=== PATIENT | female | born 1950 | race Hispanic/Latino ===

== ENCOUNTER 2017-06-30 07:08 | Outpatient (CLI) | payer OTHER ==
--- NOTE | 2017-06-30 08:19 | CT ---
CT CHEST NONCONTRAST: HISTORY: Right middle lobe infiltrate. Followup. COMPARISON: 02/25/17. FINDINGS: The peripheral pleural-based parenchymal infiltrate at the right anterior cardiopleural angle is unch anged in appearance from the previous exam. No new parenchymal masses or infiltrates are apparent. No pleural fluid is visible. Lack of contrast limits evaluation for other abnormalities. The 1.5 cm oval low-density pleural lesi on at the posterior medial lower aspect of the right hemithorax is unchanged in appearance. No bulky adenopathy is apparent. There is calcification in the arterial structures. Bilateral adrenal adeno mas are stable. IMPRESSION: Stable CT appearance of the right middle lobe infiltrate, right posterior pleural nodule, and other f indings. Please consider yearly followup to evaluate for stability. POS: AMY
== END 2017-06-30 07:09 | disposition home or self-care (01) ==
LOC: CT 07:08
PROVIDERS: ATTEND Family Medicine
DX: J98.4 Other disorders of lung (principal); R91.1 Solitary pulmonary nodule
CPT/HCPCS: 71250

== ENCOUNTER 2017-11-15 09:37 | Outpatient (CLI) | payer OTHER ==
--- NOTE | 2017-11-15 15:45 | MMO ---
BILATERAL SCREENING MAMMOGRAM: Date: 11/15/17 HISTORY: Annual screening exam. This is being treated as a baseline study given that the previous films could not be located. This patient's mammogram was interpreted with the assistance of computer-aided detection. FINDINGS: There is an area of parenchymal asymmetry seen in the upper outer right breast, somewhat more difficu lt to definitely localize on the MLO projection, but I have marked an area that I feel is most likely the area in question. IMPRESSION: BIRADS 0: Incomplete: Need Additional Imaging Evaluation and/or Prior Mammograms for Comparison Further imaging required. In this case, spot compression views of the area marked in the upper outer right breast, to be followed by ultrasound if necessary. The facility will notify patient of need for additional imaging services. POS: AMY
== END 2017-11-15 09:38 | disposition home or self-care (01) ==
LOC: SCSMAMMO 09:37
PROVIDERS: ATTEND Family Medicine
DX: Z12.31 Encounter for screening mammogram for malignant neoplasm of breast (principal)
CPT/HCPCS: 77067

== ENCOUNTER 2017-12-22 08:15 | Outpatient (CLI) | payer OTHER | END 2017-12-22 08:16 | disposition home or self-care (01) | LOC: BICMAMMO 08:15 | PROVIDERS: ATTEND Family Medicine | DX: N64.89 Other specified disorders of breast (principal) | CPT/HCPCS: G0279 ==

== ENCOUNTER → 2018-02-09 | Day surgery (SDC) | payer OTHER | LOC: BICULT 13:13 | PROVIDERS: ATTEND Family Medicine | DX: N60.02 Solitary cyst of left breast (principal) ==

== ENCOUNTER 2018-07-03 13:08 | Outpatient (CLI) | payer OTHER ==
--- NOTE | 2018-07-03 14:41 | CT ---
CT OF CHEST PERFORMED WITHOUT CONTRAST ENHANCEMENT: HISTORY: Evaluation of right posterior pleural-based nodule and right middle lobe infiltrate. COMPARISON: A study. FINDINGS: The lungs are clear of any infiltrative process. There is a pleural-based nodule which has CT Hounsfield unit numbers which are -5. This measures 2.1 cm in maximum length. Doing measurements at the same level on the previous examination, although th at density was described as being 1.5 cm, I obtained a similar measurement and feel that this is stab le. The right middle lobe parenchymal changes which are along the right heart border have improved slight ly as compared to the prior examination. There is no new parenchymal process seen. No significant m ediastinal or hilar adenopathy is appreciated on this noncontrast study. Bilateral low attenuation adrenal masses are seen. The mass on the right is 2.1 cm and on the left [address] numbers compatible with adenomas and are stable. The visualized liver parenchyma shows no focal findings. IMPRESSION: 1. Stable overall examination. 2. Stable pleural-based nodule within the right lower lobe in a ore paravertebral location. 3. Some slight improvement to the parenchymal lung changes in the right middle lobe. 4. Stable bilateral adenomas. 5. Stable appearance to some small subdiaphragmatic and periportal and peripancreatic nodes which ar e incidentally noted. POS: AMY
== END 2018-07-03 13:09 | disposition home or self-care (01) ==
LOC: CT 13:08
PROVIDERS: ATTEND Family Medicine
DX: R91.1 Solitary pulmonary nodule (principal); D14.32 Benign neoplasm of left bronchus and lung; D14.31 Benign neoplasm of right bronchus and lung
CPT/HCPCS: 71250

== ENCOUNTER 2018-12-26 09:12 | Outpatient (CLI) | payer OTHER ==
--- NOTE | 2018-12-27 10:58 | MMO ---
Bilateral MAMMO Bilat Screen DDI. CLINICAL HISTORY: Patient is 68 years old and is seen for screening. The patient has no family history of breast cancer. The patient has no personal history of cancer. VIEWS: The views performed were: bilateral craniocaudal and bilateral mediolateral oblique. FILMS COMPARED: The present examination has been compared to prior imaging studies performed at [facility] on 11/15/2017, and at [facility] on 12/22/2017. This study has been interpreted with the assistance of computer-aided detection. MAMMOGRAM FINDINGS: There are scattered fibroglandular densities. There is a high density, irregular mass measuring 14 millimeters with indistinct margins seen in the middle upper-outer region of the left breast. In the right breast, there are no suspicious masses, calcifications or areas of architectural distortion. IMPRESSION: MASS IN THE LEFT BREAST REQUIRES ADDITIONAL EVALUATION. AN ULTRASOUND EXAM IS RECOMMENDED. SPOT MAGNIFICATION VIEW(S) ARE RECOMMENDED. ACR BI-RADS Category 0 - Incomplete: Need additional imaging evaluation. [facility] will notify the patient of the need for additional imaging services. MAMMOGRAPHY NOTE: 1. A negative mammogram report should not delay a biopsy if a dominant of clinically suspicious mass is present. 2. Approximately 10% to 15% of breast cancers are not detected by mammography. 3. Adenosis and dense breasts may obscure an underlying neoplasm. Reported by: LYNETTE DUGAN MD Electonically Signed: [id number]
== END 2018-12-26 09:13 | disposition home or self-care (01) ==
LOC: SCSMAMMO 09:12
PROVIDERS: ATTEND Family Medicine
DX: N64.89 Other specified disorders of breast (principal); N63.20 Unspecified lump in the left breast, unspecified quadrant
CPT/HCPCS: 77067

== ENCOUNTER 2019-03-20 09:05 | Outpatient (CLI) | payer OTHER ==
--- NOTE | 2019-03-20 09:59 | MMO ---
Left Breast MAMMO Unilat Diag DDI LT+BELEN. CLINICAL HISTORY: Patient is 68 years old and is seen for diagnostic exam. The patient has no family history of breast cancer. The patient has no personal history of cancer. VIEWS: The views performed were: left craniocaudal spot compression; left mediolateral oblique spot compression; and left mediolateral with tomosynthesis. FILMS COMPARED: The present examination has been compared to prior imaging studies performed at [facility] on 11/15/2017 and 12/26/2018, and at [facility] on 12/22/2017 and 03/20/2019. This study has been interpreted with the assistance of computer-aided detection. MAMMOGRAM FINDINGS: There are scattered fibroglandular densities. There is a high density, irregular mass with spiculated margins seen in the upper-outer region of the left breast. A shadowing hypoechoic mass is demonstrated sonographically. IMPRESSION: MASS IN THE LEFT BREAST IS HIGHLY SUGGESTIVE OF MALIGNANCY. AN ULTRASOUND-GUIDED BREAST BIOPSY IS RECOMMENDED. RESULTS AND RECOMMENDATIONS DISCUSSED WITH THE PATIENT AND QUESTIONS ANSWERED. THE RESULTS OF THIS EXAM WERE SENT TO THE PATIENT. ACR BI-RADS Category 5 - Highly suggestive of malignancy - appropriate action should be taken MAMMOGRAPHY NOTE: 1. A negative mammogram report should not delay a biopsy if a dominant of clinically suspicious mass is present. 2. Approximately 10% to 15% of breast cancers are not detected by mammography. 3. Adenosis and dense breasts may obscure an underlying neoplasm. Reported by: SHIREEN FALCON MD Electonically Signed: [id number]
--- NOTE | 2019-03-20 11:16 | ULT ---
LIMITED LEFT BREAST ULTRASOUND: 03/20/2019 PROVIDED CLINICAL HISTORY: Abnormal mammogram. FINDINGS: Limited sonographic interrogation of the left breast, in the upper outer quadrant was performed. Ther e is an irregular hypoechoic shadowing mass present at the 2 o'clock position of the left breast, nicki suring at least 1.7 cm in greatest transverse dimension. IMPRESSION: BI-RADS category 5 - highly suspicious for malignancy. Ultrasound guided breast biopsy is recommended. Results and recommendations discussed with the patien t and questions answered. POS: OFF
== END 2019-03-20 09:06 | disposition home or self-care (01) ==
LOC: BICMAMMO 09:05
PROVIDERS: ATTEND Family Medicine
DX: N63.21 Unspecified lump in the left breast, upper outer quadrant (principal)
CPT/HCPCS: G0279

== ENCOUNTER 2019-04-12 08:30 | Outpatient (CLI) | payer OTHER ==
--- NOTE | 2019-04-12 09:01 | ULT ---
Sonogram right upper quadrant HISTORY: Abnormal liver function tests. FINDINGS: Gallbladder has a normal appearance. Common duct is 0.4 cm. Liver unremarkable without foca l mass or intrahepatic biliary dilatation. No free fluid. IMPRESSION: Normal exam.
--- NOTE | 2019-04-12 10:25 | MMO ---
Left Breast MAMMO Unilat Diag DDI LT. CLINICAL HISTORY: Patient is 68 years old and is seen for diagnostic exam. VIEWS: The views performed were: . FILMS COMPARED: The present examination has been compared to prior imaging studies performed at [facility] on 12/26/2018, and at [facility] on 12/22/2017 and 03/20/2019. This study has been interpreted with the assistance of computer-aided detection. MAMMOGRAM FINDINGS: There are scattered fibroglandular densities. There is a biopsy clip seen in the upper-outer region of the left breast. IMPRESSION: BIOPSY CLIP IN THE LEFT BREAST IS CONFIRMED UTILIZING POST PROCEDURE MAMMOGRAM. THE RESULTS OF THIS EXAM WERE SENT TO THE PATIENT. MAMMOGRAPHY NOTE: 1. A negative mammogram report should not delay a biopsy if a dominant of clinically suspicious mass is present. 2. Approximately 10% to 15% of breast cancers are not detected by mammography. 3. Adenosis and dense breasts may obscure an underlying neoplasm. Reported by: PITER ELLIS MD Electonically Signed: [id number]
--- NOTE | 2019-04-12 12:32 | ULT ---
Sonographic guided left breast mass biopsy and localization clip placement HISTORY: Left breast mass. FINDINGS: After explaining the procedure and answering all questions, the hypoechoic mass at the 2:00 position left breast was again documented. Sterile technique, buffered local anesthesia, sonographic guidance, and a lateral approach were used to carefully advance the tip of a 14-gauge bio psy needle to the level of the spiculated mass. A total of 3 14-gauge core biopsy specimens were obtained and eventually submitted to pathology for evaluation. Localization clip was placed in the biopsy bed under sonographic control. Patient tolerated the proce dure well and was eventually dismissed in good condition. IMPRESSION: Technically successful sonographic guided left breast mass.
== END 2019-04-12 08:31 | disposition home or self-care (01) ==
LOC: BICULT 08:30
PROVIDERS: ATTEND Family Medicine
DX: C50.412 Malignant neoplasm of upper-outer quadrant of left female breast (principal)
CPT/HCPCS: 19083; 76705; 88305

== ENCOUNTER 2019-04-26 08:16 | Outpatient (CLI) | payer OTHER ==
--- NOTE | 2019-04-26 13:48 | PET ---
Exam: PET CT skull to mid thigh COMPARISON: None HISTORY: Left breast cancer TECHNIQUE: A PET/CT was performed from the skull to the mid thigh after administration of 11.2 millic uries of F-18 FDG. Evaluation was performed on a [employer] workstation. FINDINGS: NECK: No areas of hypermetabolic activity CHEST: There is mild increased metabolic activity of patient's known left breast malignancy, 2.6 SUV. ABDOMEN/PELVIS: No areas of hypermetabolic activity SKELETON: No areas of hypermetabolic activity CT images used for attenuation correction show stable pleural-based mass of the posterior, medial rig ht hemithorax, which is not hypermetabolic. Bilateral adrenal adenomas are redemonstrated. There is ectasia of the aortic arch, 3.5 cm in diameter. IMPRESSION: Hypermetabolic focus, involving left breast soft tissues, related to patient's recently d iagnosed left breast cancer. There is no scintigraphic evidence of metastatic disease.
== END 2019-04-26 08:17 | disposition home or self-care (01) ==
LOC: PET 08:16
PROVIDERS: ATTEND Family Medicine
DX: C50.912 Malignant neoplasm of unspecified site of left female breast (principal)
CPT/HCPCS: 78815; A9552

== ENCOUNTER 2023-06-07 18:04 | Inpatient (IN) | payer OTHER ==
[2023-06-07] MEDS ORDERED: Morphine 4 MG/ML VIAL ONE ×2 (18:55→21:16)
[2023-06-07] MEDS ORDERED: Ondansetron PF 4 MG/2 ML Vial ONE ×2 (18:56→21:17)
[2023-06-07 20:07] LABS: #Eosinphils 0.1 thou/uL (0.0-0.7); #Neutrophils 7.9 thou/uL (1.40-6.50); %Basophils 0.2 % (0.0-1.0); %Eosinophils 1.1 % (0.0-10.0); %Lymphocytes 9.6 % (21.0-51.0); %Monocytes 10.2 % (0.0-10.0); %Neutrophils 78.1 % (42.0-75.0); Hematocrit 32.4 % (36.0-47.0); Hemoglobin 11.2 g/dL (12.0-16.0); Mean Corpuscular HGB CONC 34.6 g/dL (32.0-36.0); Mean Corpuscular Hemoglobin 34.1 pg (27.0-31.0); Mean Corpuscular Volume 98.8 fl (78.0-98.0); Platelet Count 153 10x3/uL (130-400); RBC Distribution Width 13.2 % (11.5-14.5); Red Blood Cell (RBC) Count 3.28 mill/uL (4.20-5.40); White Blood Cell (WBC) Count 10.1 10x3/uL (4.8-10.8)
[2023-06-07 20:21] LABS: INR-International Normal Ratio 0.9; Prothrombin Time 12.8 sec (12.0-14.7)
[2023-06-07 20:22] LABS: PTT 26.7 sec (22.9-36.1)
[2023-06-07 20:34] LABS: ALT (SGPT) 26 U/L (8-55); AST (SGOT) 26 U/L (5-34); Albumin 4.4 g/dL (3.4-4.8); Alkaline Phosphatase 137 U/L (40-110); Anion Gap 15 mmol/L (10-20); BUN (Urea Nitrogen) 21 mg/dL (9.8-20.1); Bilirubin, Total 0.4 mg/dL (0.2-1.2); Calc. Creatinine Clearance 0 mL/min (70-130); Calcium 9.7 mg/dL (7.8-10.44); Carbon Dioxide 21 mmol/L (23-31); Chloride 104 mmol/L (98-107); Estimated GFR 32; Globulin 3.8 g/dL (2.4-3.5); Glucose 103 mg/dL (83-110); Potassium 3.6 mmol/L (3.5-5.1); Protein, Total 8.2 g/dL (5.8-8.1); Sodium 136 mmol/L (136-145)
[2023-06-07] MEDS ORDERED: Morphine 4 MG/ML VIAL SLOW IVP PRN (21:24)
[2023-06-07] MEDS ORDERED: TETANUS, DIPHTHERIA TOX,ADULT (TDVAX) 0.5 ML VIAL IM ONE (21:24)
[2023-06-07] MEDS ORDERED: hydrALAZINE 20 MG/ML VIAL SLOW IVP PRN (21:24)
[2023-06-07] MEDS ORDERED: Morphine 2 MG/ML VIAL SLOW IVP PRN (21:24)
[2023-06-07 21:29] VITALS: BMI 28.9
[2023-06-07] MEDS: Sodium Chloride 0.9% 1,000 ML IV SCH ×2 (22:04→23:58)
[2023-06-07] MEDS ORDERED: Boostrix 0.5 ML (Tdap) VIAL (>/=7 yrs of age) ONE (22:16)
[2023-06-07] MEDS: traMADol HCl 50 MG TAB PO PRN (23:57)
[2023-06-08 06:24] LABS: #Eosinphils 0.1 thou/uL (0.0-0.7); #Monocytes 0.8 thou/uL (0.11-0.59); %Basophils 0.1 % (0.0-1.0); %Eosinophils 0.8 % (0.0-10.0); %Lymphocytes 16.4 % (21.0-51.0); %Monocytes 11.4 % (0.0-10.0); Hematocrit 33.3 % (36.0-47.0); Hemoglobin 10.9 g/dL (12.0-16.0); Mean Corpuscular HGB CONC 32.7 g/dL (32.0-36.0); Mean Corpuscular Hemoglobin 33.9 pg (27.0-31.0); Mean Platelet Volume 9.5 fL (7.4-10.4); Platelet Count 105 10x3/uL (130-400); RBC Distribution Width 13.3 % (11.5-14.5); Red Blood Cell (RBC) Count 3.22 mill/uL (4.20-5.40); White Blood Cell (WBC) Count 7.1 10x3/uL (4.8-10.8)
[2023-06-08 06:39] LABS: Mean Corpuscular Volume 103.4 fl (78.0-98.0)
[2023-06-08 06:46] LABS: Anion Gap 13 mmol/L (10-20); BUN (Urea Nitrogen) 18 mg/dL (9.8-20.1); Calc. Creatinine Clearance 37 mL/min (70-130); Calcium 8.6 mg/dL (7.8-10.44); Carbon Dioxide 19 mmol/L (23-31); Chloride 107 mmol/L (98-107); Estimated GFR 38; Glucose 97 mg/dL (83-110); Potassium 3.8 mmol/L (3.5-5.1); Sodium 135 mmol/L (136-145)
[2023-06-08] MEDS ORDERED: Clindamycin/D5W 900 MG in Premix 1 BAG IVPB SCH (07:30)
[2023-06-08] MEDS ORDERED: Clindamycin/D5W 900 mg/50 ml Premix Bag ONE (07:40)
[2023-06-08] MEDS ORDERED: PROPOFOL 20 ML ONE (07:52)
[2023-06-08] MEDS ORDERED: Fentanyl 250 MCG/5 ML VIAL ONE (07:53)
[2023-06-08] MEDS ORDERED: Dexamethasone 4 mg/ml Vial ONE (07:55)
[2023-06-08] MEDS ORDERED: Rocuronium Bromide 10 MG/ML (10ML VIAL) ONE (07:55)
[2023-06-08] MEDS ORDERED: Ondansetron PF 4 MG/2 ML Vial ONE (07:55)
[2023-06-08] MEDS: Sodium Chloride 0.9% 1,000 ML IV SCH ×2 (08:01→21:47)
[2023-06-08] MEDS: Acetaminophen 500 MG TAB PO SCH ×4 (08:01→21:40)
[2023-06-08] MEDS: Famotidine 20 MG TAB PO SCH ×2 (08:01→21:40)
[2023-06-08] MEDS ORDERED: SUGAMMADEX SODIUM 200 MG/2 ML VIAL ONE (08:54)
[2023-06-08] MEDS ORDERED: Promethazine HCl 25 MG/ML VIAL IM PRN (09:11)
[2023-06-08] MEDS ORDERED: Ondansetron HCl/PF 4 MG/2 ML Vial IVP PRN (09:11)
[2023-06-08] MEDS: Clindamycin/D5W 900 MG in Premix 1 BAG IVPB SCH ×2 (16:34→23:28)
[2023-06-08] MEDS: traMADol HCl 50 MG TAB PO PRN (21:41)
[2023-06-09 05:43] LABS: %Basophils 0.1 % (0.0-1.0); %Eosinophils 0.1 % (0.0-10.0); %Lymphocytes 10.3 % (21.0-51.0); %Monocytes 13.1 % (0.0-10.0); %Neutrophils 75.9 % (42.0-75.0); Hematocrit 26.3 % (36.0-47.0); Hemoglobin 8.7 g/dL (12.0-16.0); Mean Corpuscular HGB CONC 33.1 g/dL (32.0-36.0); Mean Corpuscular Hemoglobin 34.3 pg (27.0-31.0); Mean Corpuscular Volume 103.5 fl (78.0-98.0); Mean Platelet Volume 8.9 fL (7.4-10.4); Platelet Count 123 10x3/uL (130-400); RBC Distribution Width 13.2 % (11.5-14.5); Red Blood Cell (RBC) Count 2.54 mill/uL (4.20-5.40); White Blood Cell (WBC) Count 7.9 10x3/uL (4.8-10.8)
[2023-06-09] MEDS: Clindamycin/D5W 900 MG in Premix 1 BAG IVPB SCH (08:28)
[2023-06-09] MEDS: traMADol HCl 50 MG TAB PO PRN ×3 (09:29→23:19)
[2023-06-09] MEDS: Famotidine 20 MG TAB PO SCH ×2 (09:29→20:07)
[2023-06-09] MEDS: Sodium Chloride 0.9% 1,000 ML IV SCH ×3 (09:30→22:35)
[2023-06-09] MEDS: Acetaminophen 500 MG TAB PO SCH ×4 (09:30→20:06)
[2023-06-09] MEDS: Heparin 5,000 UNITS/ML VIAL SC SCH (20:05)
[2023-06-10] MEDS: Sodium Chloride 0.9% 1,000 ML IV SCH ×3 (04:43→22:00)
[2023-06-10] MEDS: traMADol HCl 50 MG TAB PO PRN ×2 (05:14→19:50)
[2023-06-10 05:17] LABS: #Eosinphils 0.2 thou/uL (0.0-0.7); #Neutrophils 4.5 thou/uL (1.40-6.50); %Basophils 0.3 % (0.0-1.0); %Eosinophils 2.7 % (0.0-10.0); %Monocytes 13.7 % (0.0-10.0); %Neutrophils 62.9 % (42.0-75.0); Hematocrit 27.1 % (36.0-47.0); Mean Corpuscular HGB CONC 33.2 g/dL (32.0-36.0); Mean Corpuscular Hemoglobin 34.4 pg (27.0-31.0); Mean Corpuscular Volume 103.4 fl (78.0-98.0); Mean Platelet Volume 8.8 fL (7.4-10.4); Platelet Count 120 10x3/uL (130-400); RBC Distribution Width 13.4 % (11.5-14.5); Red Blood Cell (RBC) Count 2.62 mill/uL (4.20-5.40); White Blood Cell (WBC) Count 7.1 10x3/uL (4.8-10.8)
[2023-06-10] MEDS: Famotidine 20 MG TAB PO SCH ×2 (09:20→19:50)
[2023-06-10] MEDS: Heparin 5,000 UNITS/ML VIAL SC SCH ×2 (09:20→19:33)
[2023-06-10] MEDS: Acetaminophen 500 MG TAB PO SCH ×4 (09:20→19:50)
[2023-06-11] MEDS: Sodium Chloride 0.9% 1,000 ML IV SCH ×3 (09:58→20:20)
[2023-06-11] MEDS: Famotidine 20 MG TAB PO SCH ×2 (09:59→19:42)
[2023-06-11] MEDS: Acetaminophen 500 MG TAB PO SCH ×4 (09:59→19:41)
[2023-06-11] MEDS: Heparin 5,000 UNITS/ML VIAL SC SCH ×2 (11:20→19:43)
[2023-06-11] MEDS: traMADol HCl 50 MG TAB PO PRN (19:42)
[2023-06-12] MEDS: traMADol HCl 50 MG TAB PO PRN (04:58)
[2023-06-12 05:40] LABS: #Eosinphils 0.2 thou/uL (0.0-0.7); #Monocytes 0.9 thou/uL (0.11-0.59); #Neutrophils 3.6 thou/uL (1.40-6.50); %Basophils 0.3 % (0.0-1.0); %Eosinophils 2.5 % (0.0-10.0); %Lymphocytes 22.9 % (21.0-51.0); %Monocytes 13.9 % (0.0-10.0); %Neutrophils 59.6 % (42.0-75.0); Hematocrit 30.9 % (36.0-47.0); Hemoglobin 10.4 g/dL (12.0-16.0); Mean Corpuscular HGB CONC 33.7 g/dL (32.0-36.0); Mean Corpuscular Hemoglobin 33.5 pg (27.0-31.0); Mean Corpuscular Volume 99.7 fl (78.0-98.0); Mean Platelet Volume 8.5 fL (7.4-10.4); Platelet Count 139 10x3/uL (130-400); RBC Distribution Width 13.1 % (11.5-14.5); White Blood Cell (WBC) Count 6.1 10x3/uL (4.8-10.8)
[2023-06-12 06:30] LABS: Anion Gap 13 mmol/L (10-20); BUN (Urea Nitrogen) 23 mg/dL (9.8-20.1); Calc. Creatinine Clearance 34 mL/min (70-130); Calcium 9.6 mg/dL (7.8-10.44); Carbon Dioxide 22 mmol/L (23-31); Chloride 104 mmol/L (98-107); Estimated GFR 35; Glucose 105 mg/dL (83-110); Potassium 3.9 mmol/L (3.5-5.1); Sodium 135 mmol/L (136-145)
[2023-06-12] MEDS: Acetaminophen 500 MG TAB PO SCH ×4 (08:45→22:40)
[2023-06-12] MEDS: Famotidine 20 MG TAB PO SCH ×2 (08:46→22:40)
[2023-06-12] MEDS: Heparin 5,000 UNITS/ML VIAL SC SCH ×2 (08:46→22:42)
[2023-06-12] MEDS: Sodium Chloride 0.9% 1,000 ML IV SCH ×2 (09:18→18:39)
[2023-06-13] MEDS: Sodium Chloride 0.9% 1,000 ML IV SCH (05:46)
[2023-06-13] MEDS ORDERED: traMADol HCl 50 MG TAB PO PRN (08:43)
[2023-06-13] MEDS: Heparin 5,000 UNITS/ML VIAL SC SCH (10:11)
[2023-06-13] MEDS: traMADol HCl 50 MG TAB PO SCH ×2 (10:14→18:20)
[2023-06-13] MEDS: Famotidine 20 MG TAB PO SCH (10:15)
[2023-06-13] MEDS: Acetaminophen 500 MG TAB PO SCH ×3 (10:15→18:32)
[2023-06-13] MEDS ORDERED: Lactulose 20 GM (30 mL) UDCUP PO SCH (15:00)
[2023-06-13 17:06] VITALS: BP 109/66; TEMP 97.9
[2023-06-13] MEDS ORDERED: Senokot S 8.6-50 MG TAB PO SCH (21:00)
[2023-06-14] MEDS ORDERED: Polyethylene Glycol 3350 17 GM Packet PO SCH (09:00)
== END 2023-06-13 19:00 | disposition home or self-care (01) | DRG 481 ==
LOC: ERS 18:04 → EEVIPCON 18:04 → ERHOLD 20:20 → SJJU 23:22
PROVIDERS: ADMIT Specialist; ATTEND Specialist
PROC: 0QS704Z Reposition Left Upper Femur with Internal Fixation Device, Open Approach (ICD-10-PCS; principal; 2023-06-08)
DX: S72.142A Displaced intertrochanteric fracture of left femur, initial encounter for closed fracture (principal); D62 Acute posthemorrhagic anemia; W18.30XA Fall on same level, unspecified, initial encounter; Z88.5 Allergy status to narcotic agent; Z88.0 Allergy status to penicillin; Z88.8 Allergy status to other drugs, medicaments and biological substances; Z79.899 Other long term (current) drug therapy; Z90.710 Acquired absence of both cervix and uterus; Z98.890 Other specified postprocedural states; E11.22 Type 2 diabetes mellitus with diabetic chronic kidney disease; I12.9 Hypertensive chronic kidney disease with stage 1 through stage 4 chronic kidney disease, or unspecified chronic kidney disease; N18.30 Chronic kidney disease, stage 3 unspecified; D63.1 Anemia in chronic kidney disease; E78.00 Pure hypercholesterolemia, unspecified
CPT/HCPCS: 36415; 36416; 71045; 80048; 80053; 85025; 85610; 85730; 86850; 86900; 86901; 90715; 93005; 96374; 96375; 96376; C1713; J1100; J1644; J2270; J2405; J2704; J3010; J3490; J7050